=== PATIENT | female | born 1985 | race Caucasian/White ===

== ENCOUNTER 2018-04-03 03:35 | Emergency (ER) | payer SELFPAY ==
[~2018-04-03 03:35] MED LIST: ELAVIL25 MG PO; [UNRECOGNIZED DRUG - OTHER] PO
[2018-04-03 03:49] VITALS: Ht 165.1 cm
[2018-04-03 04:36] LABS: CALCIUM 8.6 mg/dL (8.5-10.1); CARBON DIOXIDE 23.9 mmol/L (21-32); CHLORIDE SERUM 103 mmol/L (98-107); CREATININE SERUM 0.6 mg/dL (0.6-1.0); GFR1 > 60 mL/min; GLUCOSE SERUM 127 mg/dL (74-106); POTASSIUM SERUM 3.3 mmol/L (3.5-5.1); SODIUM SERUM 139 mmol/L (136-145)
[2018-04-03 04:38] LABS: ALBUMIN 4.1 g/dL (3.4-5.0); ALKALINE PHOSPHATASE 93 U/L (46-116); ALT/SGPT 34 U/L (14-59); AST/SGOT 21 U/L (15-37); BILIRUBIN TOTAL 0.3 mg/dL (0.20-1.00)
[2018-04-03 04:40] LABS: TOTAL PROTEIN, SERUM 8.3 g/dL (6.4-8.2)
[2018-04-03 04:48] LABS: BASOPHIL % 0.2 % (0-2); PLATELET COUNT 388 x10^3mcL (130-400); RED CELL DISTRIBUTION WIDTH 12.7 % (11.5-14.5)
[2018-04-03 05:35] VITALS: BP 130/91
== END 2018-04-03 05:35 | disposition home or self-care (01) ==
LOC: ED 03:35
PROVIDERS: Emergency Medicine
DX: R07.89 Other chest pain (principal); R06.02 Shortness of breath
CPT/HCPCS: 83880; 85378; J1885; J2060; Q0092

== ENCOUNTER 2018-07-29 08:33 | Emergency (ER) | payer SELFPAY ==
[~2018-07-29] VITALS: Ht 152.4 cm; Wt 54.0 kg
[2018-07-29 08:38] VITALS: Ht 152.4 cm; Wt 54.0 kg
[2018-07-29 09:00] VITALS: BP 149/94
[2018-07-29 09:57] LABS: PLATELET COUNT 366 x10^3mcL (130-400); RED CELL DISTRIBUTION WIDTH 12.3 % (11.5-14.5)
[2018-07-29 10:00] LABS: BASOPHIL % 3.4 % (0-2)
[2018-07-29 10:04] LABS: CALCIUM 8.4 mg/dL (8.5-10.1); CARBON DIOXIDE 26.2 mmol/L (21-32); CHLORIDE SERUM 104 mmol/L (98-107); CREATININE SERUM 0.6 mg/dL (0.6-1.0); GFR1 > 60 mL/min; GLUCOSE SERUM 95 mg/dL (74-106); POTASSIUM SERUM 3.7 mmol/L (3.5-5.1); SODIUM SERUM 139 mmol/L (136-145)
[2018-07-29 10:08] LABS: ALKALINE PHOSPHATASE 74 U/L (46-116); ALT/SGPT 27 U/L (14-59); AST/SGOT 15 U/L (15-37); BILIRUBIN TOTAL 0.73 mg/dL (0.20-1.00); CHOLESTEROL 148 mg/dL (<200); CHOLESTEROL/HDL RATIO 3.9; HDL CHOLESTEROL 38 mg/dL (40-60); LIPASE 104 IU/L (73-393); TRIGLYCERIDES 100 mg/dL (<150)
[2018-07-29 10:20] LABS: FREE T4 1.08 ng/dL (0.76-1.46); FREE THYROXINE INDEX 2.9 ug/dL (1.4-4.5); T4(THYROXINE) 8.1 ug/dL (4.7-13.3)
[2018-07-29 10:21] LABS: T3 TOTAL 1.14 ng/mL
== END 2018-07-29 11:10 | disposition home or self-care (01) ==
LOC: ED 08:33
PROVIDERS: Specialist
DX: M94.0 Chondrocostal junction syndrome [Tietze] (principal); Z87.19 Personal history of other diseases of the digestive system
CPT/HCPCS: 36415; 84439; J1885; Q0092